=== PATIENT | male | born 1995 | race Caucasian/White ===

== ENCOUNTER 2018-10-04 16:23 | Emergency (ER) | payer OTHER ==
[2018-10-04] MEDS ORDERED: Ketorolac 60 MG/2 ML SDV IM ONE (16:50)
--- NOTE | 2018-10-04 16:59 | EDM.PDOC ---
ED HPI GENERAL MEDICAL PROBLEM - General Chief Complaint: Lower Extremity Injury/Pain Stated Complaint: INJURED LT LEG Time Seen by Provider: 10/04/18 16:40 Source of Information: Reports: Patient History Limitations: Reports: No Limitations - History of Present Illness INITIAL COMMENTS - FREE TEXT/NARRATIVE: Presents to the ER reporting that last night he slipped on a wet floor and did the "splits with my left leg". He has had pain in his hamstring on the left since. He has been trying to keep limbered up and it has been moving a little better this afternoon. left groin Pain Score (Numeric/FACES): 7 - Related Data Allergies Allergy/AdvReac Type Severity Reaction Status Date / Time No Known Allergies Allergy Verified 10/04/18 16:30 Home Meds: Home Meds Cyclobenzaprine [Flexeril] 10 mg PO TID PRN #20 tab 10/04/18 [Rx] Diclofenac Sodium [Voltaren] 1 tab PO BIDMEALS PRN #20 tab.cr 10/04/18 [Rx] Past Medical History - Past Health History Medical/Surgical History: Denies Medical/Surgical History HEENT History: Reports: None Cardiovascular History: Reports: None Respiratory History: Reports: None Gastrointestinal History: Reports: None Genitourinary History: Reports: None Musculoskeletal History: Reports: None Neurological History: Reports: None Psychiatric History: Reports: None Endocrine/Metabolic History: Reports: None Hematologic History: Reports: None Immunologic History: Reports: None Oncologic (Cancer) History: Reports: None Dermatologic History: Reports: None - Past Surgical History Head Surgeries/Procedures: Reports: None HEENT Surgical History: Reports: None Cardiovascular Surgical History: Reports: None Respiratory Surgical History: Reports: None GI Surgical History: Reports: None Male Surgical History: Reports: None Endocrine Surgical History: Reports: None Neurological Surgical History: Reports: None Musculoskeletal Surgical History: Reports: None Oncologic Surgical History: Reports: None Dermatological Surgical History: Reports: None Social & Family History - Family History Family Medical History: Noncontributory - Tobacco Use Smoking Status *Q: Current Every Day Smoker Years of Tobacco use: 8 Packs/Tins Daily: 1.5 - Caffeine Use Caffeine Use: Reports: Coffee - Recreational Drug Use Recreational Drug Use: No Review of Systems - Review of Systems Review Of Systems: ROS reveals no pertinent complaints other than HPI. ED EXAM, GENERAL - Physical Exam Exam: See Below Exam Limited By: No Limitations General Appearance: Alert, No Apparent Distress Ears: Normal External Exam Nose: Normal Inspection Throat/Mouth: Normal Inspection Head: Atraumatic, Normocephalic Neck: Normal Inspection Respiratory/Chest: No Respiratory Distress, Lungs Clear, Normal Breath Sounds Cardiovascular: Normal Peripheral Pulses, Regular Rate, Rhythm Extremities: Normal Inspection, Other (Pain and tenderness left posterior thigh. Pain increases with full extension of the knee. Flexion and extension of hip knee and ankle intact. CMS intact distally) Neurological: Alert, Oriented Psychiatric: Normal Affect, Normal Mood Skin Exam: Warm, Dry, Intact, Normal Color, No Rash Course - Vital Signs Last Recorded V/S: Last Vital Signs Temp 35.7 C 10/04/18 16:31 Pulse 94 10/04/18 16:31 Resp 18 10/04/18 16:31 BP 151/88 H 10/04/18 16:31 Pulse Ox 98 10/04/18 16:31 - Orders/Labs/Meds Orders: Active Orders 24 hr Category Date Time Status Orphenadrine [Norflex] Med 10/04/18 17:00 Ordered 60 mg IM Q12H Medication Orders Orphenadrine Citrate (Norflex) 60 mg IM Q12H RENEE Meds: Medications Generic Name Dose Route Start Last Admin Trade Name Freq PRN Reason Stop Dose Admin Orphenadrine Citrate 60 mg 10/04/18 17:00 Norflex IM Q12H RENEE Discontinued Medications Generic Name Dose Route Start Last Admin Trade Name Freq PRN Reason Stop Dose Admin Ketorolac Tromethamine 60 mg 10/04/18 16:50 Toradol IM 10/04/18 16:51 ONETIME ONE Departure - Departure Time of Disposition: 16:54 Disposition: Home, Self-Care 01 Condition: Good Clinical Impression: Hamstring strain Qualifiers: Encounter type: initial encounter Laterality: left Qualified Code(s): S76.312A - Strain of muscle, fascia and tendon of the posterior muscle group at thigh level, left thigh, initial encounter - Discharge Information *PRESCRIPTION DRUG MONITORING PROGRAM REVIEWED*: Not Applicable *COPY OF PRESCRIPTION DRUG MONITORING REPORT IN PATIENT TATO: Not Applicable Referrals: PCP,None [Primary Care Provider] - Bryant Oliveira [Ordering Only Provider] - [facility] [Outside] Additional Instructions: 1. Physical therapy evaluate and treat. 2. I closed the neck one tab twice daily or Aleve 2 tabs twice daily or ibuprofen 2-3 tabs 3 times daily as needed for pain 3. Flexeril every 8 hours as needed for muscle spasm. No driving or operating machinery 4. Warm packs 20 minutes every 3-4 hours as needed 5. Follow-up in primary care - My Orders Last 24 Hours: My Active Orders 10/04/18 17:00 Orphenadrine [Norflex] 60 mg IM Q12H - Assessment/Plan Last 24 Hours: My Active Orders 10/04/18 17:00 Orphenadrine [Norflex] 60 mg IM Q12H
[2018-10-04 17:17] VITALS: BP 131/70
== END 2018-10-04 17:17 | disposition home or self-care (01) ==
LOC: MW.ED 16:23
DX: S76.312A Strain of muscle, fascia and tendon of the posterior muscle group at thigh level, left thigh, initial encounter (principal); F17.210 Nicotine dependence, cigarettes, uncomplicated; W01.0XXA Fall on same level from slipping, tripping and stumbling without subsequent striking against object, initial encounter
CPT/HCPCS: 96372; 99283; J1885; J2360

== ENCOUNTER 2023-01-05 12:31 | Emergency (ER) | payer OTHER ==
[2023-01-05 13:36] VITALS: PULSE 69
[2023-01-05] MEDS ORDERED: Ketorolac 30 MG/ML SDV IM ONE (13:52)
[2023-01-05] MEDS ORDERED: Dexamethasone 10 MG/ML SDV IM STA (13:52)
[2023-01-05 15:31] VITALS: BP 128/52
== END 2023-01-05 15:15 | disposition home or self-care (01) ==
LOC: MW.ED 12:31
DX: M54.50 Low back pain, unspecified (principal); G89.29 Other chronic pain
CPT/HCPCS: 73030; 96372; 99283; J1100; J1885; J3360

== ENCOUNTER 2023-06-06 14:54 | Emergency (ER) | payer OTHER ==
[2023-06-06] MEDS ORDERED: Ketorolac 30 MG/ML SDV IVPUSH ONE (16:09)
[2023-06-06 16:40] LABS: BASOPHILS PERCENT AUTO 0.4 % (0.0-1.5); EOSINOPHILS ABSOLUTE AUTO 0.1 K/uL (0.0-0.7); EOSINOPHILS PERCENT AUTO 1.1 % (0.0-7.0); HEMATOCRIT 43.5 % (38.0-50.0); HEMOGLOBIN 14.5 g/dL (13.0-17.0); LYMPHOCYTES ABSOLUTE AUTO 1.8 K/uL (0.6-2.4); MEAN CORPUSCULAR HGB CONC 33.3 g/dL (31.0-37.0); MEAN CORPUSCULAR VOLUME 93.1 fL (80.0-98.0); MONOCYTES ABSOLUTE AUTO 0.5 K/uL (0.0-0.8); MONOCYTES PERCENT AUTO 9.5 % (0.0-15.0); NEUTROPHILS ABSOLUTE AUTO 2.9 K/uL (1.4-5.7); NRBC ABSOLUTE 0 K/uL; PLATELET COUNT,PLT 296 K/uL (150-400); RED BLOOD CELL COUNT 4.67 M/uL (4.50-5.90); WHITE BLOOD CELL COUNT,WBC 5.35 K/uL (4.0-11.0)
[2023-06-06 17:13] LABS: ALBUMIN 4.2 g/dL (3.4-5.0); BILIRUBIN TOTAL 0.2 mg/dL (0.2-1.0); CALCIUM 8.5 mg/dL (8.5-10.1); CARBON DIOXIDE,CO2 27.2 mmol/L (21.0-32.0); CREATININE 0.9 mg/dL (0.8-1.3); EST CRCL DRUG DOSING (CG) 133.63 mL/min; POTASSIUM,K 3.7 mmol/L (3.5-5.1); PROTEIN TOTAL,TP 8.2 g/dL (6.4-8.2)
[2023-06-06] MEDS ORDERED: Clindamycin HCl 150 MG Cap PO STA (17:34)
[2023-06-06 17:58] VITALS: BP 121/85; PULSE 75
== END 2023-06-06 17:57 | disposition home or self-care (01) ==
LOC: MW.ED 14:54
DX: L03.113 Cellulitis of right upper limb (principal); Z79.899 Other long term (current) drug therapy
CPT/HCPCS: 36415; 73090; 80053; 83605; 85025; 87040; 96374; 99283; A9270; J1885; 99284